=== PATIENT | female | born 1995 | race Caucasian/White ===

== ENCOUNTER 2023-08-11 19:58 | Outpatient (REF) | payer MEDICAID, SELFPAY ==
[2023-08-19 14:09] LABS: HPV Aptima Negative (Negative); Pap IG (Image Guided) Note (.)
== END 2023-08-11 19:59 | disposition home or self-care (01) ==
LOC: LAB 19:58
PROVIDERS: Visit Provider Obstetrics & Gynecology
DX: R87.610 Atypical squamous cells of undetermined significance on cytologic smear of cervix (ASC-US) (principal); R87.810 Cervical high risk human papillomavirus (HPV) DNA test positive
CPT/HCPCS: 87624; G0145

== ENCOUNTER 2023-08-19 07:44 | Outpatient (OUT) | payer OTHER, SELFPAY ==
--- OUTSIDE RECORDS SUMMARY | 2023-08-19 07:50 | XMS_ITS | CCD ---
Author Name Unknown Address [address] [place] [address] Organization [facility] Care Team Providers Care Manager Food Beverage Name Role Phone Kash Brewer Primary Care Provider MAKENZIE OWEN Referring Unavailable KASH BREWER Primary Care Unavailable MAGALY PAINTER Attending Unavail KASH Munoz Primary Care Unavailable MAGALY PAINTER Attending Unavail KASH Munoz Primary Care Unavailable KASH BREWER Consulting Unavailable YUSUF ZHANG Attending Unavailable Allergies Allergy Classification Reported Allergen(s) Allergy Type Date of Onset Reaction(s) Facility (1 source) No Known Medication Allergies; Translations: [No Known Medication Allergies] Propensity to adverse reactions to drug (disorder) [facility] Repository Medications Current Medications Medication Drug Class(es) Dates Sig (Normalized) Sig (Original) medroxyPROGESTERone acetate 160 mg/ml injectable suspension (1 source) Progestin medroxyPROGESTER one Acetate 104 MG/0.65ML GARO Inject 104 mg into the skin 0 Active metroNIDAZOLE 500 mg oral tablet (1 source) Nitroimidazole Antimicrobial Start: 04-12-20 20 End: 04-26-20 20 take 1 tablet by mouth twice daily metroNIDAZOLE (FLAGYL) 500 MG tablet Take 1 tablet by mouth 2 times daily for 14 days 28 tablet 0 04/12/2020 04/26/2020 Active valACYclovir 500 mg oral tablet (1 source) Herpesvirus Nucleoside Analog DNA Polymerase Inhibitor, Herpes Simplex Virus Nucleoside Analog DNA Polymerase Inhibitor, Herpes Zoster Virus Nucleoside Analog DNA Polymerase Inhibitor Start: 01-30-20 20 valACYclovir (VALTREX) 500 MG tablet Results Test Name Value Interpretation Reference Range Facil ity Chlamydia/GC DNA, TPon 04-13 Chlamydia Probe, TP Negative Normal NEG [facility] Comment on above: Result Comment: CHLA MYDIA TRACHOMATIS DNA not detected by nucleic acid amplification. This test is intended for medical purposes only and is not valid for the evaluation of suspected sexual abuse or for other forensic purposes. In certain contexts, culture may be required to meet applicable laws and regulations for diagnosis of C. trachomatis and N. gonorrhoeae infections. Per 2014 CDC recommendations, this test does not include confirmation of positive results by an alternative nucleic acid target. Performed By: #### C YTCGP #### [employer] [address] [place] [address] [phone] Finishing Technician: Asif Cortes MD Gonorrhea Probe, TP Negative Normal NEG [facility] Comment on above: Result Comment: NEIS SERIA GONORRHOEAE DNA not detected by nucleic acid amplification. This test is intended for medical purposes only and is not valid for the evaluation of suspected sexual abuse or for other forensic purposes. In certain contexts, culture may be required to meet applicable laws and regulations for diagnosis of C. trachomatis and N. gonorrhoeae infections. Per 2014 CDC recommendations, this test does not include confirmation of positive results by an alternative nucleic acid target. Performed By: #### C YTCGP #### [employer] [address] [place] [address] [phone] Finishing Technician: Asif Cortes MD Otheron 04-12-2020 Direct Exam Negative [place] VAGINITIS DNA PROBEon 2019 Direct Exam Positive Abnormal [place] Direct Exam Method of testing is a DNA probe intended for detection and identification of Fabiola species, Gardnerella vaginalis, and Trichomonas vaginalis nucleic acid in vaginal fluid specimens from patients with symptoms of vaginitis/vaginosis. [place] Interpretation and review of laboratory results Abnormal [place] Special Requests NOT REPORTED [place] Specimen Description .VAGINAL SWAB M [place] Vaginitis DNA Probeon 2019 Vaginitis DNA Probe Specimen Description .VAGINAL SWAB Special Requests NOT REPORTED Direct Exam POSITIVE for Gardnerella vaginalis. NEGATIVE for Trichomonas vaginalis NEGATIVE for Fabiola sp. Method of testing is a DNA probe intended for detection and identification of Fabiola species, Gardnerella vaginalis, and Trichomonas vaginalis nucleic acid in vaginal fluid specimens from patients with symptoms of vaginitis/vaginosis. Report Status FINAL 04/12/2020 [facility] Comment on above: Performed By: #### V AGDNA #### [employer] [address] [place] [address] [phone] Finishing Technician: Asif Cortes MD Cytologyon 04-11-2020 Cytology (NOTE) INTERPRETATION Cervical material, (ThinPrep vial, Imaging-assisted review): Specimen Adequacy: Satisfactory for evaluation. - Endocervical/transfor mation zone component present. Descriptive Diagnosis: Negative for intraepithelial lesion or malignancy. Shift in geo suggestive of bacterial vaginosis. 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 [place], [place] [address] [facility] Comment on above: Performed By: #### P PPVP #### [employer] [address] [place] [phone] Finishing Technician: Asif Cortes MD COVID-19 RNA Detection-[facility] 01-24-2020 SARS CoV-2 RNA Screen-[place] Undetected Normal Undetected [facility] Comment on above: Result Comment: SARS -CoV-2 RNA absent. This result does not rule out COVID-19 in the patient, as the sensitivity of the test depends on the timing of the specimen collection and the quality of the specimen. Result should be correlated with patient's history and clinical presentation. ADDITIONAL INFORMATION This test using the robbie SARS-CoV-2 assay ([employer] performed on the robbie [id number] System has received Emergency Use Authorization (EUA) by the U.S. Food and Drug Administration, and is modified from the commercial counsel's instructions with a bridging study. Performance characteristics were verified by [facility] in a manner consistent with CLIA requirements. Fact sheets for this Emergency Use Authorization (EUA) assay can be found at the following links: For Healthcare Providers: https://www.fda.gov/media/765822/download For Patients: https://www.fda.gov/media/733930/download Test Performed by: [facility] [address] [place] [address] Finishing Technician: Adalid Webb M.D. Ph.D.; CLIA# [id number] Performed By: #### C [id number] #### [facility] [address] [place] [address] SARS CoV-2 Spec Source[place] Oropharynx Normal [facility] Comment on above: Performed By: #### C [id number] #### [facility] [address] [place] [address] Encounters Encounter Date Encounter Type Care Provider Facility Start: 08-11-2023 End: 08-11-2023 ambulatory YUSUF VICENTE Not Available Start: 07-23-2023 End: 07-23-2023 ambulatory YUSUF VICENTE Not Available Start: 04-21-2020 End: 04-22-2020 Patient encounter procedure MAGALY PAINTER Facility:[facility] Start: 04-11-2020 End: 04-12-2020 [facility]: 04-11-2020 End: 04-11-2020 Subsequent hospital visit by physician Kash RICCI LAB DOCTOR Start: 03-15-2020 End: 03-16-2020 Patient encounter procedure MAGALY PAINTER Facility:[facility] Procedures Date Procedure Procedure Detail Performing Clinician Start: 04-11-2020 Iadna fabiola specie s direct probe tq Makenzie Owen Work Phone: Start: 04-11-2020 Cytp cervical/vagina l req interp physician MAKENZIE OWEN Plan of Treatment Date Care Activity Detail Author Start: 03-13-2020 Influenza vaccination Flu vaccine (# 1) [place] Start: 2015 Screening for malign ant neoplasm of cervix Cervical cancer screen [place] Start: 2013 DTaP/Tdap/Td vaccine (1 - Tdap) DTaP/Tdap/Td vaccine (1 - Tdap) [place] Start: 2009 HIV screening HIV screen [place], [place] Start: 2005 HPV vaccine (1 - 2-d ose series) HPV vaccine (1 - 2-dose series) [place] Start: 1995 Varicella vaccine (1 of 2 - 2-dose childhood series) Varicella vaccine (1 of 2 - 2-dose childhood series) [place] End: 04-12-2020 DATA PROGRAMMER Cytology DATA PROGRAMMER Cytology Lab Routine Once for 1 Occurrences starting 04/12/2020 until 04/12/2020 [place] Comment on above: Once for 1 Occurrenc es starting 04/12/2020 until 04/12/2020 Payers Date Payer Category Payer Unknown 2014 Unknown [id number] 1994 Unknown [id number] 1994 Unknown [id number] 1994 Unknown [id number] [id number] Social History Date Type Detail Facility [facility]: [facility]11[facility] [place] Start: 04-11-2020 Tobacco use and exposure Never used [place] Start: 04-11-2020 [facility] intake [facility] Start: 04-11-2020 History SDOH Alcohol Frequency 3 [place] Sex Assigned At Not on file [place] Advance Directives No Advanced Directives Records FoundDocuments on File Type Date Recorded 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 ACP-Advance Directive ACP-Power of Cardiovascular Disease Specialist Summary Purpose Family History No Family History Records FoundNo Family History Records FoundNo Family History Records Found Additional Source Comments INFORMATION SOURCE (unrecogn ized section and content) DATE CREATED AUTHOR 04/21/2020 [facility] DATE CREATED AUTHOR AUTHOR'S ORGANIZ ATION 04/21/2020 [facility] DATE CREATED AUTHOR AUTHOR'S ORGANIZ ATION 08/12/2023 [facility] EPIC FOR RECORDS PERTAINING TO PATIENTS WHO ARE OR HAVE BEEN ENROLLED IN A CHEMICAL DEPENDENCY/SUBSTANCEABUSE PROGRAM, SOME INFORMATION MAY BE OMITTED. This clinical summary was aggregated from multiple sources. Caution should be exercised in using it in the provision of clinical care. This summary normalizes information from multiple sources, and as a consequence, information in this document may materially change the coding, format and clinical context of patient data. In addition, data may be omitted in some cases. CLINICAL DECISIONS SHOULD BE BASED ON THE PRIMARY CLINICAL RECORDS. [employer] provides no warranty or guarantee of the accuracy or completeness of information in this document.
--- NOTE | 2023-08-19 08:02 | XR_ITS ---
The [address] [address] Patient Name: MICHELLE SANFORD MRN: [id number] date: 1995 Sex: F Assigned Patient Location: RAD Current Patient Location: RAD Accession/Order Number: [id number] Exam Date: 08/19/2023 08:10 Report Date: 08/19/2023 09:08 At the request of: YUSUF ZHANG Procedure: XR DEXA axial skeleton EXAM: XR DEXA axial skeleton HISTORY: Depo-Provera Contraceptive Status Z30.42 COMPARISON: None. TECHNIQUE: Routine DEXA scan lumbar spine and bilateral hips. FINDINGS: L1-L4: BMD 1.119 g/sq cm and Z score -0.6. Left femoral neck: BMD 0.875 g/sq cm and and Z score -1.1. Left hip total: BMD 0.924 g/sq cm and and Z score -0.6. Right femoral neck: BMD 0.857 g/sq cm and and T score -1.2. Right hip total: BMD 0.947 g/sq cm and and T score -0.5. XR/XR DEXA axial skeleton IMPRESSION: Z-score's were utilized for analysis secondary to the patient's age and premenopausal state. The patient's bone mineral density is within the expected range for age. Electronically authenticated by: MARIA ESTHER KUMARI Date: 08/19/2023 09:08
== END 2023-08-19 07:45 | disposition home or self-care (01) ==
LOC: RAD 07:47
PROVIDERS: Visit Provider Obstetrics & Gynecology
DX: Z30.42 Encounter for surveillance of injectable contraceptive (principal)
CPT/HCPCS: 77080